=== PATIENT | female | born 1940 | race Two or more races ===

== ENCOUNTER 2019-06-22 13:51 | Emergency (ER) | payer SELFPAY ==
[~2019-06-22] VITALS: Ht 157.5 cm; Wt 63.0 kg
--- NOTE | 2019-06-22 15:24 | PHYS DOC ---
Past Medical History Past Medical History: Hypertension Past Surgical History: Other Additional Past Surgical Histo: HERNIA REPAIR Alcohol Use: None Drug Use: None Adult General Chief Complaint Chief Complaint: DIZZY/LIGHT HEADED HPI HPI Patient is a 79 year old Belarusian-speaking female with history of hypertension who presents to the ED today complaining of dizziness with vomiting that she experienced this morning. Patient denies anything specifically that exacerbated her dizziness. She states she was sitting in a chair when the symptoms began. She states she's had similar symptoms before but not as bad. Denies any chest pain, shortness of breath. Denies any fevers. Denies any cough or congestion. She states at the time the dizziness was going on she also had a mild headache. She states the last time she had similar symptoms the blood pressure was elevated. She is on losartan for her blood pressure. Interpretation was provided by family for [place]. Review of Systems Review of Systems Constitutional: Denies fever or chills [] Eyes: Denies change in visual acuity, redness, or eye pain [] HENT: Denies nasal congestion or sore throat [] Respiratory: Denies cough or shortness of breath [] Cardiovascular: No additional information not addressed in HPI [] GI: Reports vomiting. Denies abdominal pain, nausea, bloody stools or diarrhea [] : Denies dysuria or hematuria [] Musculoskeletal: Denies back pain or joint pain [] Integument: Denies rash or skin lesions [] Neurologic: Reports dizziness. Denies headache, focal weakness or sensory changes [] All other systems were reviewed and found to be within normal limits, except as documented in this note. Current Medications Current Medications Current Medications Medications (Trade) Dose Ordered Sig/Christiana Start Time Stop Time Status Last Admin Dose Admin Clonidine HCl (Catapres) 0.1 mg 1X ONCE 06/22/19 15:30 06/22/19 15:34 DC 06/22/19 15:55 0.1 MG Meclizine HCl (Antivert) 25 mg 1X ONCE 06/22/19 15:30 06/22/19 15:34 DC 06/22/19 15:55 25 MG Ondansetron HCl (Zofran) 4 mg 1X ONCE 06/22/19 15:30 06/22/19 15:34 DC 06/22/19 15:55 4 MG Allergies Allergies Allergies Coded Allergies Type Severity Reaction Last Updated Verified No Known Drug Allergies 06/22/19 No Physical Exam Physical Exam Constitutional: Well developed, well nourished, no acute distress, non-toxic appearance. [] HENT: Normocephalic, atraumatic, bilateral external ears normal, oropharynx moist, no oral exudates, nose normal. [] Eyes: PERRLA, EOMI, conjunctiva normal, no discharge. [] Neck: Normal range of motion, no tenderness, supple, no stridor. [] Cardiovascular:Heart rate regular rhythm, no murmur [] Lungs & Thorax: Bilateral breath sounds clear to auscultation [] Abdomen: Bowel sounds normal, soft, no tenderness, no masses, no pulsatile masses. [] Skin: Warm, dry, no erythema, no rash. [] Back: No tenderness, no CVA tenderness. [] Extremities: No tenderness, no cyanosis, no clubbing, ROM intact, no edema. [] Neurologic: Alert and oriented X 3, normal motor function, normal sensory function, no focal deficits noted. Cranial nerves II through XII intact Psychologic: Affect normal, judgement normal, mood normal. [] Current Patient Data Vital Signs Vital Signs Date Time Temp Pulse Resp B/P (MAP) Pulse Ox O2 Delivery O2 Flow Rate FiO2 06/22/19 15:55 75 211/88 06/22/19 14:46 98.1 16 96 Room Air 98.1 Lab Values Laboratory Tests Test 06/22/19 14:25 06/22/19 15:49 06/22/19 17:00 06/22/19 17:48 Urine Opiates Screen Neg (NEG) Urine Methadone Screen Neg (NEG) Urine Barbiturates Neg (NEG) Urine Phencyclidine Screen Neg (NEG) Urine Amphetamine/Methamphetamine Neg (NEG) Urine Benzodiazepines Screen Neg (NEG) Urine Cocaine Screen Neg (NEG) Urine Cannabinoids Screen Neg (NEG) Urine Ethyl Alcohol Neg (NEG) Sodium Level 140 mmol/L (136-145) Potassium Level 4.7 mmol/L (3.5-5.1) Chloride Level 105 mmol/L (98-107) Carbon Dioxide Level 24 mmol/L (21-32) Anion Gap 11 (6-14) Blood Urea Nitrogen 31 mg/dL (7-20) H Creatinine 1.5 mg/dL (0.6-1.0) H Estimated GFR (Cockcroft-Gault) 33.7 BUN/Creatinine Ratio 21 (6-20) H Glucose Level 129 mg/dL (70-99) H Calcium Level 9.6 mg/dL (8.5-10.1) Magnesium Level 2.1 mg/dL (1.8-2.4) Total Bilirubin 0.3 mg/dL (0.2-1.0) Aspartate Amino Transferase (AST) 22 U/L (15-37) Alanine Aminotransferase (ALT) 24 U/L (14-59) Alkaline Phosphatase 136 U/L (46-116) H Creatine Kinase 121 U/L (26-192) Creatine Kinase MB (Mass) 0.9 ng/mL (0.0-3.6) Creatine Kinase MB Relative Index 0.7 % (0-4) Troponin I Quantitative < 0.017 ng/mL (0.000-0.055) ME-Xhf-E-Type Natriuretic Peptide 324 pg/mL (0-449) Total Protein 9.0 g/dL (6.4-8.2) H Albumin 3.7 g/dL (3.4-5.0) Albumin/Globulin Ratio 0.7 (1.0-1.7) L Thyroid Stimulating Hormone (TSH) 3.968 uIU/mL (0.358-3.74) H White Blood Count 8.4 x10^3/uL (4.0-11.0) Red Blood Count 4.26 x10^6/uL (3.50-5.40) Hemoglobin 13.0 g/dL (12.0-15.5) Hematocrit 38.9 % (36.0-47.0) Mean Corpuscular Volume 91 fL (79-100) Mean Corpuscular Hemoglobin 31 pg (25-35) Mean Corpuscular Hemoglobin Concent 34 g/dL (31-37) Red Cell Distribution Width 13.6 % (11.5-14.5) Platelet Count 208 x10^3/uL (140-400) Neutrophils (%) (Auto) 82 % (31-73) H Lymphocytes (%) (Auto) 13 % (24-48) L Monocytes (%) (Auto) 4 % (0-9) Eosinophils (%) (Auto) 0 % (0-3) Basophils (%) (Auto) 1 % (0-3) Neutrophils # (Auto) 6.9 x10^3/uL (1.8-7.7) Lymphocytes # (Auto) 1.1 x10^3/uL (1.0-4.8) Monocytes # (Auto) 0.3 x10^3/uL (0.0-1.1) Eosinophils # (Auto) 0.0 x10^3/uL (0.0-0.7) Basophils # (Auto) 0.0 x10^3/uL (0.0-0.2) Urine Collection Type Unknown Urine Color Yellow Urine Clarity Clear Urine pH 5.0 Urine Specific Wallace 1.020 Urine Protein Negative mg/dL (NEG-TRACE) Urine Glucose (UA) Negative mg/dL (NEG) Urine Ketones (Stick) Negative mg/dL (NEG) Urine Blood Negative (NEG) Urine Nitrite Negative (NEG) Urine Bilirubin Negative (NEG) Urine Urobilinogen Dipstick 0.2 mg/dL (0.2 mg/dL) Urine Leukocyte Esterase Moderate (NEG) Urine RBC 0 /HPF (0-2) Urine WBC >40 /HPF (0-4) Urine Squamous Epithelial Cells Mod /LPF Urine Bacteria 0 /HPF (0-FEW) Laboratory Tests 06/22/19 17:00 Laboratory Tests 06/22/19 15:49 EKG EKG 14:[address] Narvaez sinus rhythm Hr 73 no STEMI Radiology/Procedures Radiology/Procedures []PROCEDURE: PORTABLE CHEST 1V EXAM: CHEST 1 VIEW History: Dizziness COMPARISON: None available. TECHNIQUE: Single portable radiograph of the chest FINDINGS: The cardiac silhouette is unremarkable. Minimal bibasilar lung atelectasis. Minimal prominent bilateral interstitial lung markings. IMPRESSION: Minimal prominent bilateral interstitial lung markings likely minimal congestive changes. Electronically signed by: Tushar Jensen MD (06/22/2019 3:48 PM) [place] [id number] DICTATED and SIGNED BY: TUSHAR JENSEN MD DATE: 06/22/19 1548 PROCEDURE: CT HEAD WO CONTRAST CT HEAD INDICATION: Dizziness COMPARISON: None Available. Exposure: One or more of the following individualized dose reduction techniques were utilized for this examination: 1. Automated exposure control 2. Adjustment of the mA and/or kV according to patient size 3. Use of iterative reconstruction technique TECHNIQUE: 5 mm contiguous axial images were obtained from the skull base to the vertex in both bone and soft tissue algorithm. FINDINGS: Mild bilateral periventricular white matter hypodensities likely chronic small vessel ischemic disease. No evidence of acute intracranial hemorrhage. No extra-axial fluid collections. No mass effect or midline shift. Ventricular size is appropriate. Basal cisterns are patent. No fractures identified.Babin-white differentiation is preserved.Globes and orbits are within normal limits. Paranasal sinuses and mastoid air cells are clear. IMPRESSION: No acute intracranial findings. Electronically signed by: Tushar Jensen MD (06/22/2019 4:54 PM) [place] [id number] DICTATED and SIGNED BY: TUSHAR JENSEN MD DATE: 06/22/19 2368 Course & Med Decision Making Course & Med Decision Making Pertinent Labs and Imaging studies reviewed. (See chart for details) This is a 79-year-old female patient presenting to the ED today with dizziness and headache and vomiting that began this morning. Vitals on arrival to the ED temperature 98.1, heart rate 79, O2 sats 99% on room air, blood pressure 136/81, respirations 16. EKG was negative, CT of the head is negative, chest x-ray is negative. CBC with a normal WBC, CMP with creatinine of 1.5, BUN 31, urine analysis is noted for UTI. Patient was given IV fluids and meclizine. I went back to evaluate patient. She states she feels much better, i even offered admission which she declined. She's been able to walk and go to the bathroom with no dizziness. She states all her symptoms are gone. She was discharged to home with meclizine and cephalexin for UTI. Instructed to continue pushing fluids. Follow up with her own PCP in the course of this week. Dragon Disclaimer Dragon Disclaimer This electronic medical record was generated, in whole or in part, using a voice recognition dictation system. Departure Departure Impression: Primary Impression: Vertigo Additional Impression: UTI (urinary tract infection) Disposition: HOME, SELF-CARE Condition: STABLE Referrals: NO PCP (PCP) follow up with your doctor this week Patient Instructions: Urinary Tract Infection, Vertigo, [id number] Additional Instructions: You were evaluated for dizziness and noted to be dehydrated, please continue pushing fluids. You also have urinary tract infection, complete the prescribed antibiotics. Follow-up with your own doctor in the course of this week. Scripts Cephalexin (CEPHALEXIN) 500 Mg Tablet 1 TAB PO BID, #14 TAB Prov: LIANA DUNCAN APRN 06/22/19 Meclizine Hcl (MECLIZINE HCL) 25 Mg Tablet 1 TAB PO TID, #90 TAB Prov: LIANA DUNCAN APRN 06/22/19 Problem Qualifiers Additional Impression: UTI (urinary tract infection) Urinary tract infection type: site unspecified Hematuria presence: without hematuria Qualified Codes: N39.0 - Urinary tract infection, site not specified LIANA DUNCAN APRN Jun 22, 2019 15:24
[2019-06-22] MEDS ORDERED: MECLIZINE HCL 12.5 MG TABLET. PO ONE (15:30)
[2019-06-22] MEDS ORDERED: cloNIDine HCL 0.1 MG TABLET PO ONE (15:30)
[2019-06-22] MEDS ORDERED: ONDANSETRON PF 4 MG/2 ML VIAL. IV ONE (15:30)
--- NOTE | 2019-06-22 15:46 | EKG ---
[facility] [address] [place] [address] Test Date: 2019-06-22 Test Time: 14:49:33 Pat Name: VIOLETTA SAUCEDO Department: Room: Gender: F Clinical Reviewer: : 1940 Requested By: LIANA DUNCAN Order Number: [id number] Reading MD: Measurements Intervals [place] Rate: 73 P: 48 FL: 164 QRS: 9 QRSD: 84 T: 31 QT: 420 QTc: 467 Interpretive Statements SINUS RHYTHM NORMAL ECG RI6.01 No previous ECG available for comparison
[2019-06-22 15:47] LABS: BARBITURATES NEG (NEG); BENZODIAZEPINES NEG (NEG); CANNABINOIDS NEG (NEG); COCAINE NEG (NEG); METHADONE NEG (NEG); OPIATES NEG (NEG); PHENCYCLIDINE NEG (NEG)
[2019-06-22 15:49] LABS: AMPHETAMINE/METHAMPHETAMINE NEG (NEG)
--- NOTE | 2019-06-22 15:51 | RAD ---
EXAM: CHEST 1 VIEW History: Dizziness COMPARISON: None available. TECHNIQUE: Single portable radiograph of the chest FINDINGS: The cardiac silhouette is unremarkable. Minimal bibasilar lung atelectasis. Minimal prominent bilateral interstitial lung markings. IMPRESSION: Minimal prominent bilateral interstitial lung markings likely minimal congestive changes. Electronically signed by: Tushar Jensen MD (06/22/2019 3:48 PM) [place] [id number]
[2019-06-22 16:10] LABS: CALCIUM 9.6 mg/dL (8.5-10.1); CREATININE 1.5 mg/dL (0.6-1.0); GFR 33.7; POTASSIUM 4.7 mmol/L (3.5-5.1)
[2019-06-22 16:16] LABS: ALBUMIN 3.7 g/dL (3.4-5.0); ALBUMIN/GLOBULIN RATIO 0.7 (1.0-1.7); MAGNESIUM 2.1 mg/dL (1.8-2.4); TOTAL BILIRUBIN 0.3 mg/dL (0.2-1.0)
--- NOTE | 2019-06-22 16:57 | RAD ---
CT HEAD INDICATION: Dizziness COMPARISON: None Available. Exposure: One or more of the following individualized dose reduction techniques were utilized for this examination: 1. Automated exposure control 2. Adjustment of the mA and/or kV according to patient size 3. Use of iterative reconstruction technique TECHNIQUE: 5 mm contiguous axial images were obtained from the skull base to the vertex in both bone and soft tissue algorithm. FINDINGS: Mild bilateral periventricular white matter hypodensities likely chronic small vessel ischemic disease. No evidence of acute intracranial hemorrhage. No extra-axial fluid collections. No mass effect or midline shift. Ventricular size is appropriate. Basal cisterns are patent. No fractures identified.Babin-white differentiation is preserved.Globes and orbits are within normal limits. Paranasal sinuses and mastoid air cells are clear. IMPRESSION: No acute intracranial findings. Electronically signed by: Tushar Jensen MD (06/22/2019 4:54 PM) [place] [id number]
[2019-06-22 17:06] LABS: BASO % 1 % (0-3); EOS % 0 % (0-3); HEMATOCRIT 38.9 % (36.0-47.0); LYMPH # 1.1 x10^3/uL (1.0-4.8); LYMPH % 13 % (24-48); MEAN CORPUSCULAR HEMOGLOBIN 31 pg (25-35); MEAN CORPUSCULAR HGB CONC 34 g/dL (31-37); MEAN CORPUSCULAR VOLUME 91 fL (79-100); MONO # 0.3 x10^3/uL (0.0-1.1); MONO % 4 % (0-9); NEUT # 6.9 x10^3/uL (1.8-7.7); NEUT % 82 % (31-73); PLATELET COUNT 208 x10^3/uL (140-400); RED BLOOD COUNT 4.26 x10^6/uL (3.50-5.40); RED CELL DISTRIBUTION WIDTH 13.6 % (11.5-14.5); WHITE BLOOD COUNT 8.4 x10^3/uL (4.0-11.0)
[2019-06-22 17:56] LABS: BILIRUBIN,URINE NEGATIVE (NEG); CLARITY,URINE CLEAR; COLOR,URINE YELLOW; NITRITE,URINE NEGATIVE (NEG); PROTEIN,URINE NEGATIVE (NEG-TRACE); UROBILINOGEN,URINE 0.2 mg/dL (0.2 mg/dL)
[2019-06-22 18:16] LABS: SQUAMOUS EPITHELIAL CELL,UR MOD /LPF
[2019-06-22 18:17] LABS: BACTERIA,URINE 0 /HPF (0-FEW); RBC,URINE 0 /HPF (0-2); WBC,URINE >40 /HPF (0-4)
[2019-06-22] MEDS ORDERED: CEPH500T PO (18:39)
[2019-06-22] MEDS ORDERED: MECL25TA3 PO (18:39)
[2019-06-22 18:45] VITALS: BP 180/72
== END 2019-06-22 19:06 | disposition home or self-care (01) ==
LOC: ER 13:51
DX: R42 Dizziness and giddiness (principal); N39.0 Urinary tract infection, site not specified; I10 Essential (primary) hypertension; R11.10 Vomiting, unspecified
CPT/HCPCS: 36415; 70450; 71045; 80053; 80307; 81001; 82553; 83735; 83880; 84443; 84484; 85025; 93005; 96374; 99285; J2405; J8597